=== PATIENT | female | born 1945 | race Caucasian/White ===

== ENCOUNTER 2017-02-27 05:10 | Inpatient (IN) | payer MEDICARE, OTHER ==
[2017-02-14 11:20] LABS: WBC (NOT ORDERED) (RFLEX) 0 (0-5)
[2017-02-14 11:54] LABS: BASOPHILS 0.7 %; BASOPHILS ABSOLUTE 0.04 10/3/uL (0.0-0.16); EOSINOPHILS 4.1 %; EOSINOPHILS ABSOLUTE 0.22 10/3/uL (0.0-0.53); HEMATOCRIT 39.7 % (36.0-48.0); LYMPHOCYTES 26.2 %; LYMPHOCYTES ABSOLUTE 1.42 10/3/uL (0.67-4.30); MEAN CORPUS HGB CONC 32.7 g/dL (32.0-36.0); MEAN CORPUSCULAR HEMOGLOB 28.3 pg (26.0-34.0); MEAN PLATELET VOLUME 10.8 fL (9.2-13.0); MONOCYTES 7.2 %; MONOCYTES ABSOLUTE 0.39 10/3/uL (0.21-1.20); NEUTROPHILS 61.8 %; NEUTROPHILS ABSOLUTE 3.34 10/3/uL (2.02-8.40); PLATELET COUNT 277 10/3/uL (150-400); WHITE BLOOD CELLS 5.4 10/3/uL (4.5-10.5)
[2017-02-14 11:55] LABS: MANUAL DIFF NO %; MEAN CORPUSCULAR VOLUME 86.3 fL (80-100); RBC DISTRIBUTION WIDTH 14.7 % (12.0-16.0)
[2017-02-14 12:03] LABS: PROTIME (NOT ORD) 13.3 SEC (12.0-14.5)
[2017-02-14 12:11] LABS: A/G RATIO 1.1 (0.7-1.9); ALBUMIN 3.8 G/DL (3.5-5.0); ALKALINE PHOSPHATASE 63 U/L (45-117); CALCIUM, SERUM 8.9 MG/DL (8.5-10.4); CHLORIDE, SERUM 100 MMOL/L (96-112); CO2 (CARBON DIOXIDE) 31 MMOL/L (24-34); GFR AFRICAN AMERICAN 53 ML/MIN (>=60); GFR NON AFRICAN AMERICAN 45 ML/MIN (>=60); GLOBULIN 3.6 G/DL (2.5-4.1); POTASSIUM, SERUM 3.9 MMOL/L (3.5-5.3); SGOT(AST) 15 U/L (5-40); SGPT(ALT) 16 U/L (5-65); SODIUM, SERUM 137 MMOL/L (135-148); TOTAL BILIRUBIN 0.4 MG/DL (0-1.2); TOTAL PROTEIN 7.4 G/DL (6.0-8.5)
[2017-02-14 12:13] LABS: BUN (BLOOD UREA NITROGEN) 18 MG/DL (6-23); GLUCOSE, SERUM 98 MG/DL (60-99)
[2017-02-14 13:27] LABS: ASCORBIC ACID (UR NOT ORDER) NEG (NEG); BILIRUBIN, URINE NEGATIVE (NEG); KETONE, URINE NEGATIVE (NEG); LEUKOCYTE ESTERASE(NOT OR NEG (NEG)
--- NOTE | ~2017-02-27 | DS ---
Discharge Summary [facility] [address] [place]. [address] NAME: PAT FLORES : 45 STATUS : DIS IN PAT#: [id number] AGE: 71 ADM/REG DATE : 02/27/17 MR#: [id number] REPORT SERV DATE: 03/11/17 DICTATED BY: LETICIA DE DATE: 03/10/17 REPORT STATUS : Draft TRANSCRIBED BY: TR DATE: 03/10/17 Data Collection from hospitalization DISCHARGE DIAGNOSES: 1. Severe right hip degenerative joint disease. 2. Hypertension. 3. Gastroesophageal reflux disease. 4. Former smoker. 5. Osteoarthritis. CONSULTATIONS: None. PROCEDURES PERFORMED: Uncemented total hip arthroplasty, Tri-Lock, 02/27/2017. PATHOLOGY: Bone and soft tissue, right hip joint arthroplasty - degenerative joint disease. DISCHARGE MEDICATIONS: Elavil 10 mg every morning, aspirin 81 mg every morning, [place] [address] units every Friday as instructed, Dexilant 60 mg daily, Chester 5/325 one to two tablets every four hours as needed, Prinzide one tablet every morning, Lopressor 25 mg every morning, Singulair 10 mg at bedtime as needed, Coumadin as instructed. CONDITION ON DISCHARGE: Stable. DISPOSITION: The patient was discharged home on a regular diet with activities as instructed. She will follow up with ct, 03/11/2017. She will follow up at [facility], 03/03/2017, and at [facility] 03/03/2017. HOSPITAL COURSE: This is a 71-year-old female who has severe right hip degenerative joint disease. Treatment options were discussed, and it was elected to proceed with surgical intervention. She was admitted to the hospital at this time for further evaluation and treatment. Upon admission, she was taken to the operating room where she underwent the above-mentioned procedure. She tolerated this well. There were no complications. On postop day #1, she did complain of some nausea and constipation. MARTIN hoses were in place. A packet of MiraLAX was started. Senokot was given. On postop day #2, she had not had a bowel movement. She said she had been very constipated following her previous surgery. Discharge planning was performed. We encouraged her to mobilize with physical therapy. Dulcolax suppository was given. On 03/02/2017, she had no complaints. She was in no acute distress. Discharge instructions were given. She had a small bowel movement the previous evening. Due to her improved and stable condition, she was discharged home with the above-stated instructions. Information collected by: Susanne Chaidez I submit the above information as my discharge summary. TG/MODL Discharge Summary [facility] [id number] [place]. [address] NAME: PAT FLORES : 45 STATUS : DIS IN PAT#: [id number] AGE: 71 ADM/REG DATE : 02/27/17 MR#: [id number] REPORT SERV DATE: 03/11/17 DICTATED BY: LETICIA DE DATE: 03/10/17 REPORT STATUS : Draft TRANSCRIBED BY: TR DATE: 03/10/17 Lily De M.D. / [id number] CC: Inna Bolanos M.D. R. Henry Williams, M.D.
--- NOTE | ~2017-02-27 | OP ---
Record Of Operation [facility] [address] [place]. [address] NAME: PAT FLORES : 45 STATUS : ADM IN PAT#: [id number] AGE: 71 ADM/REG DATE : 02/27/17 MR#: [id number] REPORT SERV DATE: 02/27/17 DICTATED BY: LETICIA DE DATE: 02/27/17 REPORT STATUS : Draft TRANSCRIBED BY: MODTawnya DATE: 02/27/17 DATE OF PROCEDURE: 02/27/2017 PREOPERATIVE DIAGNOSIS: Severe right hip degenerative joint disease. POSTOPERATIVE DIAGNOSIS: Severe right hip degenerative joint disease. PROCEDURE: Uncemented total hip arthroplasty, Tri-Lock. SIDE: Right. DIRECTOR FOOD SAFETY: ANESTHESIA: See chart. SIZE: See chart. ESTIMATED BLOOD LOSS: About 100 mL. INDICATIONS FOR SURGERY: PROCEDURE: The patient was taken to the operating room and placed supine on the table without incident. Anesthetic was induced per the anesthesiologist. A Willingham catheter was placed by the nurse in the standard sterile technique. The correct side for the procedure was identified by preoperative markings and matched with the consent form. All personnel in the room were in agreement regarding the procedure, patient, and side. The patient was then carefully positioned and carefully padded and prepped and draped in the normal sterile fashion. The patient received prophylactic preoperative antibiotics at the appropriate time. The preoperative x-ray was brought up on the monitor. Again, this was reviewed with the staff in the room. According with the preoperative plan, and angled, an anterolateral incision was made centered over the trochanter extending from proximal posterior to distal anterior. Electrocautery was used to maintain meticulous hemostasis. The IT band was split in line with its fibers. A Charnley retractor was placed over saline moistened laps. A standard anterolateral approach to the hip was carried out dissecting in line with the vastus medialis fibers lifting the inferior 20% of the vastus medialis, proximally the interior 20% of the gluteus medius and gluteus minimus tendons off the anterior capsule. Periosteal elevator was used to elevate soft tissue gently directly off the proximal anterior femoral bone. Appropriate retractors were carefully placed. Complete anterior capsulectomy was performed. The hip was then carefully dislocated with a combination of traction maneuver by the research lab assistant and scooping the ball out of the socket with a Hohmann. A femoral neck osteotomy was marked according to what had been preoperatively planned with a broach as a template. The distance for the femoral neck osteotomy was measured with a ruler. A femoral neck osteotomy was made with an oscillating saw under appropriate retraction. Meticulous hemostasis was again obtained. The leg was then brought up out of the anterior bag and Record Of Operation [facility] [id number] [place]. [address] NAME: PAT FLORES : 45 STATUS : ADM IN PAT#: [id number] AGE: 71 ADM/REG DATE : 02/27/17 MR#: [id number] REPORT SERV DATE: 02/27/17 DICTATED BY: LETICIA DE DATE: 02/27/17 REPORT STATUS : Draft TRANSCRIBED BY: TR DATE: 02/27/17 positioned with the lower extremity in external rotation and slight flexion. Acetabular retractors were placed carefully palpating to be sure that they were directly on the bone. The acetabular labrum was excised with electrocautery and rongeur. Pulvinar fat was removed with a large curette and rongeur and again meticulous hemostasis was obtained. Sequential reamers were used in the acetabulum to 1 mm. less than the final size which was chosen. This was felt to give excellent interference fit. The acetabular fossa was then copiously irrigated with pulsatile lavage and actual acetabular component was placed and impacted and checked to make sure it was down snug. The overall alignment was checked. The acetabular core inserter was then removed. Screws were placed in the standard fashion. A drill, depth gauge and self tapping screw placement taking care not to plunge as the drill holes were carefully placed. A trial liner was then placed and attention directed back to the proximal femur. The leg was placed back into the anterior bag. The proximal femur was prepared using a box chisel following by a T-handled reamer to determine the intramedullary alignment. This was followed by sequential broaches up to the final broach. Once it was seated in the appropriate position, a Calcar reamer was used to plane the proximal femur. Trial reduction was then done with a trial prosthetic ball and neck. A straight edge was used to compare the tip of the trochanter to center of the ball relationship to what had been noted on the preoperative x-ray. Careful reduction was then done of the total hip. Palpation was done to ascertain and compare leg lengths by palpating the nonoperative leg and also by checking soft tissue tension. The stability of the hip was checked in full extension with full external rotation and in full flexion with adduction, flexion and internal rotation. The hip was then redislocated with a bone hook. The femoral trial and femoral broach were removed. The acetabulum was then prepared under appropriate retraction by removing the trial liner. A central hole eliminator was placed and tightened. The shell was irrigated out. The actual insert was placed and impacted and then checked to be sure it was down snug with a joker. The leg was again positioned in the bag. The proximal femur exposed, irrigated and the actual thermal prosthesis was taken from the commercial sales representative and impacted. Once it was down, the trunnion was cleansed with a wet and dry lap and the prosthetic thermal head was placed and impacted and checked to be sure it was down snug. The acetabulum was irrigated and reduction was obtained. Again, we checked soft tissue tension, leg length and stability as described above. The hip was closed in a layered fashion with a 5 mm. Mersilene tape placed through a single drill hole in the proximal anterior/superior trochanter reattaching the gluteus medius and minimus fibers. The vastus lateralis, gluteus medius, and gluteus minimus were then closed in a sleeve. Drain was placed between the vastus and the IT band exiting distally anteriorly. The IT band was closed. Subcutaneous closure and skin closure were then obtained. A sterile dressing was applied. The patient was carefully positioned into a supine position and then awakened. The patient was then carefully transferred to the stretcher to be returned to the postoperative care unit without incident. COMPLICATION: None. SPECIMENS: Right femoral head. Record Of Operation [facility] [id number] [facility] [place]. [address] NAME: PAT FLORES : 45 STATUS : ADM IN [facility]#: [id number] AGE: 71 ADM/REG DATE : 02/27/17 MR#: [id number] REPORT SERV DATE: 02/27/17 DICTATED BY: LETICIA DE DATE: 02/27/17 REPORT STATUS : Draft TRANSCRIBED BY: MODTawnya DATE: 02/27/17 WTB/MODL Lily De M.D. / [id number] CC: Lily De M.D.
[~2017-02-27 05:10] MED LIST: AMIT10 PO; ASAB PO; C25; C25 PO; KAPIDEX60 MG PO; KLONO5 PO; LOP25 PO; MOBIC7.5 PO; NORCO1 TA1 PO; PCET PO; PRILOSEC40 MG PO; PRINZIDE1 TA1 PO; SINGULAIR1 PO; VITAMIN D31000 UNIT PO; ZOFRAN4 PO
[2017-02-28 06:52] LABS: INTERNATIONAL NORMAL RATI 1.1 UNITS (-); PROTIME (NOT ORD) 14.2 SEC (12.0-14.5)
[2017-02-28 06:57] LABS: HEMATOCRIT 31.2 % (36.0-48.0); HEMOGLOBIN 10.3 g/dL (12.0-16.0)
[2017-02-28 07:02] LABS: BUN (BLOOD UREA NITROGEN) 12 MG/DL (6-23); CALCIUM, SERUM 8.5 MG/DL (8.5-10.4); CHLORIDE, SERUM 100 MMOL/L (96-112); CO2 (CARBON DIOXIDE) 27 MMOL/L (24-34); CREATININE 0.91 MG/DL (0.55-1.02); GFR AFRICAN AMERICAN 74 ML/MIN (>=60); GFR NON AFRICAN AMERICAN 63 ML/MIN (>=60); GLUCOSE, SERUM 100 MG/DL (60-99); POTASSIUM, SERUM 4.2 MMOL/L (3.5-5.3); SODIUM, SERUM 136 MMOL/L (135-148)
[2017-03-01 05:33] LABS: HEMOGLOBIN 9.8 g/dL (12.0-16.0)
[2017-03-01 05:44] LABS: INTERNATIONAL NORMAL RATI 1.4 UNITS (-)
[2017-03-01 05:46] LABS: PROTIME (NOT ORD) 17.3 SEC (12.0-14.5)
[2017-03-02 03:58] LABS: HEMATOCRIT 29.8 % (36.0-48.0); HEMOGLOBIN 9.7 g/dL (12.0-16.0)
[2017-03-02 04:06] LABS: INTERNATIONAL NORMAL RATI 1.4 UNITS (-); PROTIME (NOT ORD) 16.9 SEC (12.0-14.5)
[2017-03-02] MEDS ORDERED: NORCO1 TA1 PO (09:02)
[2017-03-02] MEDS ORDERED: C25 (09:02)
== END 2017-03-02 10:56 | disposition home or self-care (01) | DRG 470 ==
LOC: SDC/OF 05:10 → PACU 08:56 → 3JRC 12:04
PROVIDERS: Specialist
PROC: 0SR902A Replacement of Right Hip Joint with Metal on Polyethylene Synthetic Substitute, Uncemented, Open Approach (ICD-10-PCS; principal; 2017-02-27 06:45)
DX: M16.11 Unilateral primary osteoarthritis, right hip (principal); F32.9 Major depressive disorder, single episode, unspecified; Z88.8 Allergy status to other drugs, medicaments and biological substances; Z79.899 Other long term (current) drug therapy; Z79.82 Long term (current) use of aspirin; K21.9 Gastro-esophageal reflux disease without esophagitis; K59.00 Constipation, unspecified
CPT/HCPCS: 36415; 71020; 72170; 80048; 80053; 81001; 85014; 85018; 85025; 85610; 86850; 86900; 86901; 87641; 88304; 88311; 93005; 97110-GP; 97116-GP; 97150-GP; 97161-GP; 97166-GO; A9270-GY; C1713; C1776; G8978-CK-GP; G8979-CI-GP; J0690; J1885; J2250; J2270; J2274; J2405; J2550; J2710; J2795; J3010